=== PATIENT | female | born 1970 | race Two or more races ===

== ENCOUNTER → 2024-05-13 | Outpatient (CLI) | payer MEDICAID, SELFPAY ==
[2024-05-13 16:58] LABS: Basophils % (Auto) 1 % (0-2.5); Eosinophils % (Auto) 1 % (0-10); Hematocrit 36.8 % (36.0-46.0); Hemoglobin 12.3 g/dL (12.0-16.0); Immature Granulocytes % (Auto) 0 % (0-0); Immature Granulocytes Auto 0.02 Thou/mm3 (0.00-0.00); Lymphocytes # (Auto) 2.3 Thou/mm3 (1.0-4.8); Lymphocytes % (Auto) 36 % (10-50); Mean Corpuscular HGB Conc 33.4 g/dl (31.0-37.0); Mean Corpuscular Hemoglobin 34.3 pg (25.0-35.0); Mean Corpuscular Volume 103 fL (80-100); Monocytes # (Auto) 0.4 Thou/mm3 (0.0-0.8); Monocytes % (Auto) 6 % (0-12); Neutrophils # (Auto) 3.6 Thou/mm3 (1.8-7.7); Neutrophils % (Auto) 56 % (37-80); Nucleated Red Blood Cell % 0 /100 WBC (0); Platelet Count 248 Thou/mm3 (140-440); RDW Standard Deviation 52.1 fL (36.4-46.3); Red Blood Count 3.59 Miln/mm3 (4.00-5.20); White Blood Count 6.4 Thou/mm3 (3.6-11.0)
[2024-05-13 17:45] LABS: Alanine Aminotransferase 22 U/L (10-49); Albumin, Serum 4.7 gm/dL (3.5-5.0); Albumin/Globulin Ratio 2.2 (1.2-2.2); Alkaline Phosphatase 67 U/L (46-116); Anion Gap 6 (7-16); Aspartate Amino Transferase 15 U/L (0-34); BUN/Creatinine Ratio 15 Ratio (12-20); Bilirubin,Total 0.7 mg/dL (0.3-1.2); Blood Urea Nitrogen 16 mg/dL (9-23); Calcium 9.8 mg/dL (8.3-10.6); Calcium (Corrected) 9.8 mg/dL (8.5-10.1); Carbon Dioxide 29.6 mMol/L (20.0-31.0); Chloride 105 mMol/L (98-107); Creatinine (Component) 1.1 mg/dL (0.6-1.3); Globulin 2.1 gm/dL (2.3-3.5); Glucose 85 mg/dL (74-106); Osmolality,Calculated 281 (275-295); Sodium 141 mMol/L (136-145); Total Protein 6.8 gm/dL (5.7-8.2); eGFR > 60 See Note
== END | disposition home or self-care (01) ==
LOC: COPL 16:00
PROVIDERS: PCP Family Medicine; Referring Provider Internal Medicine Hematology & Oncology; Visit Provider Internal Medicine Hematology & Oncology
DX: C56.1 Malignant neoplasm of right ovary (principal)
CPT/HCPCS: 36415; 80053; 85025; 86304

== ENCOUNTER → 2024-06-17 | Outpatient (CLI) | payer MEDICAID, SELFPAY ==
[2024-06-17 10:39] LABS: Basophils % (Auto) 1 % (0-2.5); Eosinophils # (Auto) 0.1 Thou/mm3 (0.0-0.5); Eosinophils % (Auto) 1 % (0-10); Hematocrit 37.1 % (36.0-46.0); Hemoglobin 12.4 g/dL (12.0-16.0); Immature Granulocytes % (Auto) 1 % (0-0); Immature Granulocytes Auto 0.04 Thou/mm3 (0.00-0.00); Lymphocytes % (Auto) 36 % (10-50); Mean Corpuscular HGB Conc 33.4 g/dl (31.0-37.0); Mean Corpuscular Hemoglobin 34.3 pg (25.0-35.0); Mean Corpuscular Volume 103 fL (80-100); Monocytes # (Auto) 0.4 Thou/mm3 (0.0-0.8); Monocytes % (Auto) 8 % (0-12); Neutrophils % (Auto) 54 % (37-80); Nucleated Red Blood Cell % 0 /100 WBC (0); Platelet Count 240 Thou/mm3 (140-440); RDW Standard Deviation 50.4 fL (36.4-46.3); Red Blood Count 3.62 Miln/mm3 (4.00-5.20); White Blood Count 5.6 Thou/mm3 (3.6-11.0)
[2024-06-17 11:08] LABS: Alanine Aminotransferase 20 U/L (10-49); Albumin, Serum 4.5 gm/dL (3.5-5.0); Albumin/Globulin Ratio 2.6 (1.2-2.2); Alkaline Phosphatase 64 U/L (46-116); Anion Gap 7 (7-16); Aspartate Amino Transferase 14 U/L (0-34); BUN/Creatinine Ratio 19 Ratio (12-20); Bilirubin,Total 0.8 mg/dL (0.3-1.2); Blood Urea Nitrogen 19 mg/dL (9-23); Calcium 9.7 mg/dL (8.3-10.6); Calcium (Corrected) 9.7 mg/dL (8.5-10.1); Carbon Dioxide 29.3 mMol/L (20.0-31.0); Chloride 106 mMol/L (98-107); Globulin 1.7 gm/dL (2.3-3.5); Glucose 99 mg/dL (74-106); Osmolality,Calculated 285 (275-295); Potassium 4.6 mMol/L (3.4-5.1); Sodium 142 mMol/L (136-145); Total Protein 6.2 gm/dL (5.7-8.2); eGFR > 60 See Note
== END | disposition home or self-care (01) ==
LOC: COPL 09:53
PROVIDERS: PCP Family Medicine; Referring Provider Internal Medicine Hematology & Oncology; Visit Provider Internal Medicine Hematology & Oncology
DX: C56.1 Malignant neoplasm of right ovary (principal)
CPT/HCPCS: 36415; 80053; 85025; 86304

== ENCOUNTER → 2024-07-11 | Outpatient (CLI) | payer MEDICAID, SELFPAY ==
[2024-07-11 16:27] LABS: Basophils # (Auto) 0.1 Thou/mm3 (0.0-0.2); Basophils % (Auto) 1 % (0-2.5); Eosinophils # (Auto) 0.1 Thou/mm3 (0.0-0.5); Eosinophils % (Auto) 1 % (0-10); Hematocrit 36.5 % (36.0-46.0); Immature Granulocytes % (Auto) 1 % (0-0); Immature Granulocytes Auto 0.05 Thou/mm3 (0.00-0.00); Lymphocytes # (Auto) 2.7 Thou/mm3 (1.0-4.8); Lymphocytes % (Auto) 40 % (10-50); Mean Corpuscular HGB Conc 32.9 g/dl (31.0-37.0); Mean Corpuscular Hemoglobin 33.9 pg (25.0-35.0); Mean Corpuscular Volume 103 fL (80-100); Monocytes # (Auto) 0.4 Thou/mm3 (0.0-0.8); Monocytes % (Auto) 5 % (0-12); Neutrophils # (Auto) 3.6 Thou/mm3 (1.8-7.7); Neutrophils % (Auto) 53 % (37-80); Nucleated Red Blood Cell % 0 /100 WBC (0); Platelet Count 293 Thou/mm3 (140-440); RDW Standard Deviation 51.8 fL (36.4-46.3); Red Blood Count 3.54 Miln/mm3 (4.00-5.20); White Blood Count 6.8 Thou/mm3 (3.6-11.0)
[2024-07-11 16:51] LABS: Alanine Aminotransferase 20 U/L (10-49); Albumin, Serum 4.7 gm/dL (3.5-5.0); Albumin/Globulin Ratio 2.1 (1.2-2.2); Alkaline Phosphatase 64 U/L (46-116); Anion Gap 8 (7-16); Aspartate Amino Transferase < 8 U/L (0-34); BUN/Creatinine Ratio 19 Ratio (12-20); Bilirubin,Total 0.8 mg/dL (0.3-1.2); Blood Urea Nitrogen 19 mg/dL (9-23); Calcium 9.5 mg/dL (8.3-10.6); Calcium (Corrected) 9.5 mg/dL (8.5-10.1); Carbon Dioxide 27.8 mMol/L (20.0-31.0); Chloride 104 mMol/L (98-107); Globulin 2.2 gm/dL (2.3-3.5); Glucose 153 mg/dL (74-106); Osmolality,Calculated 284 (275-295); Potassium 3.8 mMol/L (3.4-5.1); Sodium 140 mMol/L (136-145); Total Protein 6.9 gm/dL (5.7-8.2); eGFR > 60 See Note
== END | disposition home or self-care (01) ==
LOC: COPL 14:00
PROVIDERS: PCP Physician Assistant; Referring Provider Internal Medicine Hematology & Oncology; Visit Provider Internal Medicine Hematology & Oncology
DX: C56.1 Malignant neoplasm of right ovary (principal)
CPT/HCPCS: 36415; 80053; 85025; 86304

== ENCOUNTER 2024-07-19 15:02 | Emergency (ER) | payer MEDICAID, SELFPAY ==
[2024-07-19 15:02] VITALS: BMI 25.0
[2024-07-19 15:25] VITALS: BP 116/64; PULSE 89; RESP 22; TEMP 36.8; O2SAT 96
--- NOTE | 2024-07-19 15:26 | EDNOTE_ITS ---
ED Abdominal Pain RME/HPI General Chief Complaint: Abdominal Pain Stated complaint: MY BELLY OPENED UP AGAIN Time seen by provider: 07/19/24 15:14 Arrival date/time: 07/19/24 15:02 RME / HPI RME / HPI narrative: This section includes all my notes and documentations, including HPI, PE, and ED course.? Kendall Espinoza MD HPI: 54 year old female with history of ovarian CA with mets, undergoing chemotherapy, s/p hysterectomy, s/p partial colon resection presents to the ED for evaluation of abdominal pain beginning 6 days ago and progressively worsening. Describes pain as aching and sensation of my stomach opened up again . Reportedly has been evaluated here before for similar pain and had a hernia that was reduced. States she feels her hernia is bulging out again. Accompanied by nausea without vomiting. Denies fevers, chills, sweats, diarrhea, constipation, or urinary symptoms. No other complaints. ROS: All negative except as documented in HPI. Physical Exam: General:? Alert and oriented.? No acute distress when remaining still.?? Eyes:? Conjunctivae and lids clear.? ENT:? No nasal congestion.? Neck:? Supple.? Heart:? RRR.? Lungs:? No respiratory distress.? Good air movement.? No rhonchi, wheezing, rale s.?? Abdomen: Severe tenderness diffusely, difficult to localize. Equivocal distention and guarding and rebound. Decreased bowel sounds. Skin:? Warm and dry.?? Neuro:? Alert and oriented X 3.?? I ordered IV fluid and Zofran and Toradol and Dilaudid and diagnostic tests. At 6 PM on 07/19/2024, the care of the patient was transferred to Dr Andrews. Kendall Espinoza MD Related Data Home Medications ?Medication ?Instructions ?Recorded ?Confirmed omeprazole 20 mg capsule,delayed 20 mg PO QDAY ##0 01/16/17 10/31/22 release ondansetron HCl 4 mg tablet 4 mg PO Q6HR PRN Nausea 10/31/22 10/31/22 oxycodone-acetaminophen 5 mg-325 1 tab PO PRN PRN Pain 10/31/22 10/31/22 mg tablet Previous Rx's ?Medication ?Instructions ?Recorded sumatriptan succinate 25 mg tablet 25 mg PO Q2H PRN migraine headache 11/03/22 1 month #14 tabs acetaminophen 500 mg tablet 500 mg PO Q6H PRN pain #30 tabs 06/10/23 (Tylenol Extra Strength) ciprofloxacin HCl 500 mg tablet 500 mg PO BID #14 tabs 06/10/23 (Cipro) Allergies Allergy/AdvReac Type Severity Reaction Status Date / Time Penicillins Allergy Severe Swelling Verified 07/19/24 15:06 of Lip/Tongue/Throat piroxicam Allergy Severe SWELLING, Verified 07/19/24 15:06 RASH UNKNOWN ALLERGY PIILL Allergy Unknown Uncoded 07/19/24 15:06 Review of Systems Review of Systems Systems Reviewed: All systems reviewed, normal except as documented Past Medical History Past Medical History CARDIAC: Positive Cardiac Arrhythmia and Hypotension GASTROINTESTINAL: Positive Gastrointestinal Disorders, Gall Bladder Disease, Colitis and Gastroesophageal Reflux Disease REPRODUCTIVE: Positive Previous Pregnancies PSYCHO/SOCIAL: Positive Psychiatric Problems and Depression OTHER HISTORY: Positive Hospitalization, Chemotherapy, Cancer and Ovarian Cancer Family History FAMILY HISTORY: Positive Family Cardiac Disorders Surgical History SURGICAL: Positive Nephrectomy and Hysterectomy Social History SMOKING STATUS: Never smoker SUBSTANCE USE: does not use ED Exam Narrative Physical exam: As noted in HPI Course Quality Measures none Orders Category Date Time Status CT Screening NOW Care 07/19/24 15:37 Active Saline [Insert IV] NOW Care 07/19/24 15:37 Active Straight [In and Out Catheter] X1 Care 07/19/24 15:[address] abdomen pelvis w con Stat Exams 07/19/24 15:37 Ordered Amylase Stat Lab 07/19/24 15:55 Completed CBC Stat Lab 07/19/24 15:55 Completed CMP [Comprehensive Metabolic Panel] Stat Lab 07/19/24 15:55 Completed Drug Screen,Urine Stat Lab 07/19/24 15:48 Completed Lipase Stat Lab 07/19/24 15:55 Completed Magnesium Stat Lab 07/19/24 15:55 Completed UA, C/S IF [Urinalysis, C/S if Indicated] Stat Lab 07/19/24 15:48 Completed HYDROmorphone INJ [Dilaudid Inj] Med 07/19/24 15:36 Discontinued 1 mg IVP X1 ONE Ketorolac Inj [Toradol Inj] Med 07/19/24 15:36 Discontinued 30 mg IVP X1 ONE Ondansetron Inj [Zofran Inj] Med 07/19/24 15:36 Discontinued 4 mg IV X1 ONE Sodium Chloride 0.9% 1000 ml [Ns] 1,000 ml Med 07/19/24 15:36 Discontinued IV 999 mls/hr Vital Signs Vital signs: Vital Signs Temperature 98.2 F 07/19/24 15:25 Pulse Rate 89 07/19/24 15:25 Respiratory Rate 22 H 07/19/24 15:25 Blood Pressure 116/64 07/19/24 15:25 Pulse Oximetry (%) 96 07/19/24 15:25 Oxygen Delivery Method Room Air 07/19/24 15:25 Pulse ox is 96% on room air which is adequate. Abdominal Pain MDM MDM Narrative MDM Narrative:: Chary Garcia am scribing for and in the presence of Dr. Espinoza. Patient data External records reviewed:: [facility] previous records (I reviewed ED visit on 04/23/2024 ) Clinical information provided by:: patient Social determinants that could affect healthcare access:: none Patient has the following chronic illnesses:: ovarian CA with mets, undergoing chemotherapy, s/p hysterectomy, s/p partial co manoj resection, umbilical hernia How is presenting disease/condition affected by chronic disease/condition?: exacerbated by Evaluation data The following diagnostics were reviewed and interpreted by me:: lab results and radiology exam(s) Lab and/or radiology exams considered but not ordered:: None Interpretation Summary: Diagnostic test results pending Medications / Prescriptions Medications or Prescriptions considered but not ordered:: None Medication administrations:: Medication Administration History Discontinued Medications Hydromorphone HCl (Hydromorphone Inj 2 Mg/Ml Vial) 1 mg IVP X1 ONE Stop: 07/19/24 15:37 Sodium Chloride (Ns) 1,000 mls @ 999 mls/hr IV .Q1H1M ONE Stop: 07/19/24 16:36 Ketorolac Tromethamine (Ketorolac Inj 30 Mg/Ml Vial) 30 mg IVP X1 ONE Stop: 07/19/24 15:37 Ondansetron HCl (Ondansetron Inj 2 Mg/Ml Inj 2 Ml) 4 mg IV X1 ONE; Protocol Stop: 07/19/24 15:37 Patient given IV fluids, dilaudid, toradol, zofran Consultations Consultation(s) initiated? (list below): No Diagnosis Differential diagnosis abdominal pain: acute appendicitis, calculus of kidney, constipation, diverticulitis, endometriosis, gastroenteritis, pancreatitis and small bowel obstruction Most likely diagnosis given after review of the tests above:: Diagnostic test results pending Admission Indicated Admission indicated?: not indicated Explain why admission is indicated or not indicated:: Diagnostic test results pending Admission Request Was there a request for admission?: No Disposition Plan Disposition Plan: other (specify) (Care of the patient was transferred to Dr Andrews) Discharge Plan Prescriptions/Referrals Prescriptions/Med Rec: No Action omeprazole 20 MG capsule,delayed release(DR/EC) 20 mg PO QDAY Qty: 0 ondansetron HCl 4 mg Tablet 4 mg PO Q6HR PRN (Reason: Nausea) oxycodone-acetaminophen 5-325 mg Tablet 1 tab PO PRN PRN (Reason: Pain) sumatriptan succinate 25 mg tablet 25 mg PO Q2H PRN (Reason: migraine headache) 30 Days Qty: 14 1RF Rx Instructions: do not exceed 8 doses per 24 hrs ciprofloxacin HCl [Cipro] 500 mg tablet 500 mg PO BID Qty: 14 0RF acetaminophen [Tylenol Extra Strength] 500 mg tablet 500 mg PO Q6H PRN (Reason: pain) Qty: 30 0RF Problem List Clinical Impression: Abdominal pain Patient/Caregiver Discharge Instructions Print Language: [place] Verdean
[2024-07-19 16:19] LABS: Collection Type, Urine Clean Catch
[2024-07-19 16:21] LABS: Basophils % (Auto) 1 % (0-2.5); Eosinophils # (Auto) 0.1 Thou/mm3 (0.0-0.5); Eosinophils % (Auto) 1 % (0-10); Hemoglobin 12.5 g/dL (12.0-16.0); Immature Granulocytes % (Auto) 1 % (0-0); Immature Granulocytes Auto 0.04 Thou/mm3 (0.00-0.00); Lymphocytes # (Auto) 2.2 Thou/mm3 (1.0-4.8); Lymphocytes % (Auto) 32 % (10-50); Mean Corpuscular HGB Conc 33.8 g/dl (31.0-37.0); Mean Corpuscular Hemoglobin 34.3 pg (25.0-35.0); Mean Corpuscular Volume 102 fL (80-100); Monocytes # (Auto) 0.5 Thou/mm3 (0.0-0.8); Monocytes % (Auto) 7 % (0-12); Neutrophils % (Auto) 58 % (37-80); Nucleated Red Blood Cell % 0 /100 WBC (0); Platelet Count 246 Thou/mm3 (140-440); Red Blood Count 3.64 Miln/mm3 (4.00-5.20); White Blood Count 6.9 Thou/mm3 (3.6-11.0)
[2024-07-19 16:30] LABS: Amphetamine/Methamp Scrn,U Negative (Negative); Barbiturate Screen,Urine Negative (Negative); Benzodiazepines Screen,Urine Negative (Negative); Benzoylecgonine Screen, Ur Negative (Negative); Fentanyl Screen,Urine Negative (Negative); Opiate Screen,Urine Negative (Negative); THC Screen,Urine Negative (Negative)
[2024-07-19 16:35] LABS: Alanine Aminotransferase 25 U/L (10-49); Albumin, Serum 4.8 gm/dL (3.5-5.0); Albumin/Globulin Ratio 2.1 (1.2-2.2); Alkaline Phosphatase 64 U/L (46-116); Amylase 85 U/L (30-118); Anion Gap 6 (7-16); Aspartate Amino Transferase < 8 U/L (0-34); BUN/Creatinine Ratio 16 Ratio (12-20); Blood Urea Nitrogen 14 mg/dL (9-23); Calcium 9.6 mg/dL (8.3-10.6); Calcium (Corrected) 9.6 mg/dL (8.5-10.1); Carbon Dioxide 30.9 mMol/L (20.0-31.0); Chloride 102 mMol/L (98-107); Creatinine (Component) 0.9 mg/dL (0.6-1.3); Estimated Creatinine Clearance 64.3 mL/min (>60); Globulin 2.3 gm/dL (2.3-3.5); Glucose 104 mg/dL (74-106); Lipase 34 U/L (12-53); Magnesium 2.1 mg/dL (1.6-2.6); Osmolality,Calculated 278 (275-295); Sodium 139 mMol/L (136-145); Total Protein 7.1 gm/dL (5.7-8.2); eGFR > 60 See Note
[2024-07-19 16:35] LABS: Bilirubin,Urine Negative (Negative); Blood,Urine Negative (Negative); Clarity,Urine Clear (Clear/Hazy); Color,Urine Yellow (Lt Yel-Yel); Culture Indicated,Urine Not Indicated; Glucose, Urine Negative (Negative); Ketones,Urine Negative (Negative); Leukocyte Esterase,Urine Negative (Negative); Nitrite,Urine Negative (Negative); PH,Urine 7.5 (5.0-7.0); Protein,Urine Trace (Neg - Trace); RBC,Urine 3 /hpf (0-3); Specific Gravity,Urine 1.027 (1.001-1.035); Squamous Epithelial Cell,Urine 1 /hpf (0-5); WBC,Urine 3 /hpf (0-5)
[2024-07-19 17:18] VITALS: BP 116/60; PULSE 64; RESP 18; TEMP 36.6; O2SAT 99
--- NOTE | 2024-07-19 17:36 | XR_ITS ---
Examination: CT abdomen with intravenous contrast CT pelvis with intravenous contrast 2-D coronal reconstructions 2-D sagittal reconstructions Date and time of exam:July 19, 2024 1836 hours Comparison April 23, 2024 INDICATIONS: Diagnosis ovarian cancer with history incarcerated bowel in an umbilical hernia defect on CT abdomen pelvis April 23, 2024, current generalized abdominal pain and nausea beginning 6 days ago. CTDI: vol (mGy) 8.34 DLP: (mGycm) 475 Technique: Multiple axial sections of the abdomen and pelvis have been obtained. 64 slice high-resolution scanner used. 3 mm axial sections have been obtained, post intravenous injection 60 cc Isovue-370 2-D sagittal, coronal reconstructions obtained. Low dose protocols were performed. One or more of the following dose reduction techniques were used; automated exposure control, adjustment of the mA and/or KV according to patient size, use of iterative reconstruction technique. Findings: Multiple metastatic nodules in the left lower lobe, the largest 15 mm, please see the PET/CT scan report March 05, 2024 1 mm liver calcification No solid liver lesions or intrahepatic biliary tract dilatation Contracted gallbladder Spleen not enlarged No pancreatic or adrenal mass Interval mild left hydronephrosis mild right hydronephrosis, no ureteral calculi Aorta is not enlarged No periaortic or pericaval lymphadenopathy No pericecal inflammatory change Small bowel high-grade obstruction secondary to incarcerated small bowel in a 36 mm umbilical hernia defect No free air No pelvic mass Contracted urinary bladder Moderate osteopenia 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
[2024-07-19] MEDS: SODIUM CHLORIDE 0.9% 1000 ML 1,000 ML 999 ML IV (17:45)
--- NOTE | 2024-07-19 18:01 | EDNOTE_ITS ---
Emergency Room Addendum <Noemi Barreto - Last Filed: 07/19/24 20:43> Addendum Narrative: 1800: Care assumed from Dr. Espinoza, the previous shift emergency physician. Past medical, surgical, social and family history reviewed. Vitals and home medications reviewed. Results and treatment plan discussed. I will assume the care of the patient at this time and will follow the patient, pending CT abdomen pelvis. Please refer to the emergency department record for history and examination from initial visit. 1923: Morphine and Ativan ordered. Will attempt to reduce the patient's hernia after the patient receives the medications. 2040: Patient denies any nausea, vomiting or constipation. Patient has been having bowel movements on a regular basis. Patient is not displaying signs of a SBO at this time. On exam, patient has a soft hernia at the 8 o'clock region of the umbilicus that was easily reduced. Patient is stable to be discharged home. RADIOLOGY RESULTS: [facility] Report Signed Patient: HALEIGH PICHARDO Record#: [id number] Birthdate: 1970 Age/Sex: 54 / F Location: [facility] Attending Dr: Ordering Physician: Kendall Espinoza MD Date of Service: 07/19/24 Procedure(s): CT abdomen pelvis w con Accession Number(s): [id number] cc: Kendall Espinoza MD; Cosme Maddox PA-C; Cain Naidu MD~ Examination: CT abdomen with intravenous contrast CT pelvis with intravenous contrast 2-D coronal reconstructions 2-D sagittal reconstructions Date and time of exam:July 19, 2024 1836 hours Comparison April 23, 2024 INDICATIONS: Diagnosis ovarian cancer with history incarcerated bowel in an umbilical hernia defect on CT abdomen pelvis April 23, 2024, current generalized abdominal pain and nausea beginning 6 days ago. CTDI: vol (mGy) 8.34 DLP: (mGycm) 475 Technique: Multiple axial sections of the abdomen and pelvis have been obtained. 64 slice high-resolution scanner used. 3 mm axial sections have been obtained, post intravenous injection 60 cc Isovue-370 2-D sagittal, coronal reconstructions obtained. Low dose protocols were performed. One or more of the following dose reduction techniques were used; automated exposure control, adjustment of the mA and/or KV according to patient size, use of iterative reconstruction technique. Findings: Multiple metastatic nodules in the left lower lobe, the largest 15 mm, please see the PET/CT scan report March 05, 2024 1 mm liver calcification No solid liver lesions or intrahepatic biliary tract dilatation Contracted gallbladder Spleen not enlarged No pancreatic or adrenal mass Interval mild left hydronephrosis mild right hydronephrosis, no ureteral calculi Aorta is not enlarged No periaortic or pericaval lymphadenopathy No pericecal inflammatory change Small bowel high-grade obstruction secondary to incarcerated small bowel in a 36 mm umbilical hernia defect No free air No pelvic mass Contracted urinary bladder Moderate osteopenia 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 Dictated By: Cain Naidu MD Signed By: <Electronically signed by Cain Naidu MD in [place]> 07/19/241908 <Moises Andrews MD - Last Filed: 07/19/24 23:35> Addendum Narrative: 1800: Care assumed from Dr. Espinoza, the previous shift emergency physician. Past medical, surgical, social and family history reviewed. Vitals and home medications reviewed. Results and treatment plan discussed. I will assume the care of the patient at this time and will follow the patient, pending CT abdomen pelvis. Please refer to the emergency department record for history and examination from initial visit. On my encounter with the patient she has a known history of an umbilical hernia, she recalls reduction of the hernia about 4 months ago by me. She did follow-up with her oncologist and she has referral to general surgery in [place] for the first time on 30 July this year. She has noted pain for the last week of which has accelerated for the last 2 days. She does not endorse a significant mass but the pain is around her umbilicus which is where her hernia has been before. On exam she has very mild nonfirm fullness about 7-8:00 from the umbilicus, suggestive with possible hernia. Is not overtly incarcerated or strangulated appearing. 1924: Morphine and Ativan ordered. Will attempt to reduce the patient's hernia after the patient receives the medications. 2040: Patient denies any nausea, vomiting or constipation. Patient has been having bowel movements on a regular basis. Patient is not displaying signs of a SBO at this time. On exam, patient has a soft hernia at the 8 o'clock region of the umbilicus that was easily reduced. Patient is stable to be discharged home. RADIOLOGY RESULTS: [facility] Report Signed Patient: HALEIGH PICHARDO. Record#: [id number] Birthdate: 1970 Age/Sex: 54 / F Location: [facility] Attending Dr: Ordering Physician: Kendall Espinoza MD Date of Service: 07/19/24 Procedure(s): CT abdomen pelvis w con Accession Number(s): [id number] cc: Kendall Espinoza MD; Cosme Maddox PA-C; Cain Naidu MD~ Examination: CT abdomen with intravenous contrast CT pelvis with intravenous contrast 2-D coronal reconstructions 2-D sagittal reconstructions Date and time of exam:July 19, 2024 1836 hours Comparison April 23, 2024 INDICATIONS: Diagnosis ovarian cancer with history incarcerated bowel in an umbilical hernia defect on CT abdomen pelvis April 23, 2024, current generalized abdominal pain and nausea beginning 6 days ago. CTDI: vol (mGy) 8.34 DLP: (mGycm) 475 Technique: Multiple axial sections of the abdomen and pelvis have been obtained. 64 slice high-resolution scanner used. 3 mm axial sections have been obtained, post intravenous injection 60 cc Isovue-370 2-D sagittal, coronal reconstructions obtained. Low dose protocols were performed. One or more of the following dose reduction techniques were used; automated exposure control, adjustment of the mA and/or KV according to patient size, use of iterative reconstruction technique. Findings: Multiple metastatic nodules in the left lower lobe, the largest 15 mm, please see the PET/CT scan report March 05, 2024 1 mm liver calcification No solid liver lesions or intrahepatic biliary tract dilatation Contracted gallbladder Spleen not enlarged No pancreatic or adrenal mass Interval mild left hydronephrosis mild right hydronephrosis, no ureteral calculi Aorta is not enlarged No periaortic or pericaval lymphadenopathy No pericecal inflammatory change Small bowel high-grade obstruction secondary to incarcerated small bowel in a 36 mm umbilical hernia defect No free air No pelvic mass Contracted urinary bladder Moderate osteopenia 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
[2024-07-19 19:34] VITALS: BP 124/55; PULSE 61; RESP 16; TEMP 36.7; O2SAT 97
[2024-07-19] MEDS: MORPHINE SULF INJ 10 MG/ML VIAL 4 MG IVP (19:47)
[2024-07-19] MEDS: LORazepam 2 MG/ML VIAL 1 MG IVP (19:47)
[2024-07-19 21:00] VITALS: BP 108/55; PULSE 67; RESP 18; O2SAT 98
== END 2024-07-19 21:03 | disposition home or self-care (01) ==
PROVIDERS: Emergency Medicine; Emergency Provider Emergency Medicine; PCP Physician Assistant
DX: K42.0 Umbilical hernia with obstruction, without gangrene (principal); C78.02 Secondary malignant neoplasm of left lung; N13.30 Unspecified hydronephrosis; C79.51 Secondary malignant neoplasm of bone
CPT/HCPCS: 36415; 74177; 80053; 80307; 81001; 82150; 83690; 83735; 85025; 96361; 96374; 96375; 99285; A4649; J2060; J2270; J7030; Q9967

== ENCOUNTER → 2024-08-14 | Outpatient (CLI) | payer MEDICAID, SELFPAY ==
[2024-08-14 13:42] LABS: Basophils % (Auto) 1 % (0-2.5); Eosinophils # (Auto) 0.1 Thou/mm3 (0.0-0.5); Eosinophils % (Auto) 1 % (0-10); Hematocrit 38.3 % (36.0-46.0); Hemoglobin 12.9 g/dL (12.0-16.0); Immature Granulocytes % (Auto) 1 % (0-0); Immature Granulocytes Auto 0.04 Thou/mm3 (0.00-0.00); Lymphocytes # (Auto) 2.1 Thou/mm3 (1.0-4.8); Lymphocytes % (Auto) 29 % (10-50); Mean Corpuscular HGB Conc 33.7 g/dl (31.0-37.0); Mean Corpuscular Hemoglobin 34.7 pg (25.0-35.0); Mean Corpuscular Volume 103 fL (80-100); Monocytes # (Auto) 0.5 Thou/mm3 (0.0-0.8); Monocytes % (Auto) 7 % (0-12); Neutrophils # (Auto) 4.4 Thou/mm3 (1.8-7.7); Neutrophils % (Auto) 62 % (37-80); Nucleated Red Blood Cell % 0 /100 WBC (0); Platelet Count 254 Thou/mm3 (140-440); Red Blood Count 3.72 Miln/mm3 (4.00-5.20); White Blood Count 7.1 Thou/mm3 (3.6-11.0)
[2024-08-14 14:05] LABS: Alanine Aminotransferase 24 U/L (10-49); Albumin, Serum 4.6 gm/dL (3.5-5.0); Albumin/Globulin Ratio 2.1 (1.2-2.2); Alkaline Phosphatase 69 U/L (46-116); Anion Gap 8 (7-16); Aspartate Amino Transferase 15 U/L (0-34); BUN/Creatinine Ratio 21 Ratio (12-20); Bilirubin,Total 0.7 mg/dL (0.3-1.2); Blood Urea Nitrogen 19 mg/dL (9-23); Calcium 9.6 mg/dL (8.3-10.6); Calcium (Corrected) 9.6 mg/dL (8.5-10.1); Carbon Dioxide 30.2 mMol/L (20.0-31.0); Chloride 103 mMol/L (98-107); Creatinine (Component) 0.9 mg/dL (0.6-1.3); Globulin 2.2 gm/dL (2.3-3.5); Glucose 105 mg/dL (74-106); Osmolality,Calculated 283 (275-295); Potassium 4.4 mMol/L (3.4-5.1); Sodium 141 mMol/L (136-145); Total Protein 6.8 gm/dL (5.7-8.2); eGFR > 60 See Note
== END | disposition home or self-care (01) ==
LOC: COPL 12:02
PROVIDERS: PCP Physician Assistant; Referring Provider Internal Medicine Hematology & Oncology; Visit Provider Internal Medicine Hematology & Oncology
DX: C56.1 Malignant neoplasm of right ovary (principal)
CPT/HCPCS: 36415; 80053; 85025; 86304

== ENCOUNTER 2024-09-05 06:25 | Day surgery (SDC) | payer MEDICAID, SELFPAY ==
--- NOTE | 2024-09-04 07:00 | EKG_ITS ---
[facility] (Formerly [facility]) Test Date: 2024-09-04 Pat Name: HALEIGH PICHARDO Department: Room: - Gender: Female Contact Center Specialist: RT STUDENT : 1970 Requested By: Paola Carballo Order Number: [id number] Reading MD: Paola Carballo Measurements Intervals [place] Rate: 56 P: 67 GA: 163 QRS: 59 QRSD: 81 T: 73 QT: 396 QTc: 383 Interpretive Statements SINUS BRADYCARDIA WARNING: DATA QUALITY MAY AFFECT INTERPRETATION Compared to ECG 10/31/2022 11:53:21 Sinus rhythm no longer present /store/S0/[id number]/[id number].pdf
[2024-09-04 12:44] VITALS: BMI 28.0
[2024-09-04 13:36] LABS: Basophils % (Auto) 1 % (0-2.5); Eosinophils # (Auto) 0.1 Thou/mm3 (0.0-0.5); Eosinophils % (Auto) 1 % (0-10); Hematocrit 39.6 % (36.0-46.0); Hemoglobin 13.3 g/dL (12.0-16.0); Immature Granulocytes % (Auto) 1 % (0-0); Immature Granulocytes Auto 0.03 Thou/mm3 (0.00-0.00); Lymphocytes # (Auto) 2.3 Thou/mm3 (1.0-4.8); Lymphocytes % (Auto) 35 % (10-50); Mean Corpuscular HGB Conc 33.6 g/dl (31.0-37.0); Mean Corpuscular Hemoglobin 34.1 pg (25.0-35.0); Mean Corpuscular Volume 102 fL (80-100); Monocytes # (Auto) 0.5 Thou/mm3 (0.0-0.8); Monocytes % (Auto) 8 % (0-12); Neutrophils # (Auto) 3.6 Thou/mm3 (1.8-7.7); Neutrophils % (Auto) 55 % (37-80); Nucleated Red Blood Cell % 0 /100 WBC (0); Platelet Count 270 Thou/mm3 (140-440); RDW Standard Deviation 49.7 fL (36.4-46.3); White Blood Count 6.5 Thou/mm3 (3.6-11.0)
[2024-09-04 13:49] LABS: Alanine Aminotransferase 26 U/L (10-49); Albumin, Serum 4.9 gm/dL (3.5-5.0); Alkaline Phosphatase 65 U/L (46-116); Anion Gap 8 (7-16); Aspartate Amino Transferase 20 U/L (0-34); BUN/Creatinine Ratio 18 Ratio (12-20); Bilirubin,Total 1.1 mg/dL (0.3-1.2); Blood Urea Nitrogen 18 mg/dL (9-23); Calcium 10.3 mg/dL (8.3-10.6); Calcium (Corrected) 10.3 mg/dL (8.5-10.1); Carbon Dioxide 31.1 mMol/L (20.0-31.0); Chloride 104 mMol/L (98-107); Globulin 2.5 gm/dL (2.3-3.5); Glucose 102 mg/dL (74-106); Osmolality,Calculated 286 (275-295); Potassium 4.5 mMol/L (3.4-5.1); Sodium 143 mMol/L (136-145); Total Protein 7.4 gm/dL (5.7-8.2); eGFR > 60 See Note
--- NOTE | 2024-09-04 14:48 | SUR.PREOP ---
Pt cardiac records indicate stress test negative for ischemia. Pt did not go for appt for results.
--- NOTE | 2024-09-04 14:54 | SUR.PREOP ---
Cardiac records reviewed with Dr Haas.
[2024-09-05] VITALS (9 sets, daily range): BP systolic 107–154; BP diastolic 65–75; PULSE 62–93; RESP 12–18; TEMP 36.3–36.6; O2SAT 99–100; BMI 28.0
[2024-09-05] MEDS: RINGERS LACTATED 1000 ML 1,000 ML 20 ML IV (07:22)
--- NOTE | 2024-09-05 09:24 | ESOP_ITS ---
Date of Procedure 09/05/24 Pre Op Diagnosis Incisional hernia Post Op Diagnosis Incisional hernia Procedure Laparoscopy with primary repair periumbilical incisional hernia Findings Approximately 4 cm periumbilical incisional hernia. Significant amount of abdominal adhesions Procedure Description Patient brought into the operating room in supine position. After administration of general endotracheal anesthesia, patient's abdomen prepped and draped in standard surgical manner. Patient was noted to have a large laparotomy scar from mid epigastrium to suprapubic region. A 5 mm incision was made in the right upper quadrant and Veress needle was inserted. Pneumoperitoneum was obtained up to 15 mmHg. The Veress needle was removed and 5 mm trocar inserted. Laparoscopic camera was inserted. The abdomen was inspected. Patient was noted to have significant amount of intra-abdominal adhesions with multiple loops of small bowel adherent into anterior abdominal wall. I felt that lysis of adhesions would likely cause small bowel injuries, so I elected to repair the hernia defect primarily. The pneumoperitoneum was evacuated and trocar removed. After administration of local anesthesia an approximately 4 cm semicircular incision was made over her previous scar to the right and around the umbilicus and dissection was deepened into soft tissue. The hernia sac was circumferentially dissected off surrounding tissue. The sac was opened patient was noted to have significant amount of adhesions of small bowel into the hernia sac. I performed enough lysis of adhesions to free small bowel from hernia sac and abdominal fascia to close the fascia primarily. The fascia was then primarily closed with interrupted sutures using 0 Ethibond. Soft tissue reapproximated with interrupted sutures using 2-0 Vicryl. Subcutaneous tissue closed with interrupted sutures using 2-0 Vicryl and incisions were closed with 4-0 Monocryl in subcuticular fashion. Dermabond and pressure dressings applied. Patient tolerated the procedure well. She was extubated, breathing spontaneously and without difficulty and was transferred to postanesthesia care in stable condition. Instruments, needles and sponge counts were reported to be correct x 2. Anesthesia GETA and local Pathology / specimen Other (Hernia sac) Estimated Blood Loss 5 Condition Stable Disposition PACU Surgeon Paola Carballo MD Surgical Staff Operation Date: 09/05/24 08:30 Case Staff Anesthesiologist: Tereso Haas RNboiler coverer helper: Polina Staples
--- NOTE | 2024-09-05 09:25 | SUR.PHASEI ---
pt received from OR in recovery bay 5. pt obtunded, breathing unlabored on oxymask 8l, oral airway in place. v/s stable. pt dressing to abd x3 cdi. report received from Walter BANKS and Dr. Haas.
[2024-09-05] MEDS: ONDANSETRON INJ 2 MG/ML INJ 2 ML 4 MG IV (09:54)
--- NOTE | 2024-09-05 09:58 | SUR.PHASEII ---
pt able to tolerate oral fluids without difficulty swallowing or nausea/vomiting.
--- NOTE | 2024-09-05 10:50 | SUR.PHASEII ---
pt awake and alert, breathing unlabored on room air. v/s stable. pt dressing to abd cdi. abd binder in place. pt able to ambulate to wheelchair with steady gait. d/c instructions given with Yazmin in room using manifold operator Rena [id number], all questions answered. pt d/c via wheelchair with all belongings.
== END 2024-09-05 10:50 | disposition home or self-care (01) ==
PROVIDERS: PCP Physician Assistant; Referring Provider Surgery; Visit Provider Surgery
PROC: 0WQF4ZZ Repair Abdominal Wall, Percutaneous Endoscopic Approach (ICD-10-PCS; CPT 49593; principal; 2024-09-05 08:30)
DX: K43.2 Incisional hernia without obstruction or gangrene (principal); K66.0 Peritoneal adhesions (postprocedural) (postinfection); Z01.810 Encounter for preprocedural cardiovascular examination
CPT/HCPCS: 49593; 36415; 80048; 80053; 85025; 93005; A4217; A4649; J0131; J0690; J1100; J2371; J2405; J2704; J2765; J3010; J3490; J7120

== ENCOUNTER → 2024-09-17 | Outpatient (CLI) | payer MEDICAID, SELFPAY ==
[2024-09-17 16:40] LABS: Basophils # (Auto) 0.1 Thou/mm3 (0.0-0.2); Basophils % (Auto) 1 % (0-2.5); Eosinophils # (Auto) 0.1 Thou/mm3 (0.0-0.5); Eosinophils % (Auto) 1 % (0-10); Hematocrit 35.2 % (36.0-46.0); Immature Granulocytes % (Auto) 1 % (0-0); Immature Granulocytes Auto 0.05 Thou/mm3 (0.00-0.00); Lymphocytes # (Auto) 2.7 Thou/mm3 (1.0-4.8); Lymphocytes % (Auto) 40 % (10-50); Mean Corpuscular HGB Conc 34.1 g/dl (31.0-37.0); Mean Corpuscular Hemoglobin 34.5 pg (25.0-35.0); Mean Corpuscular Volume 101 fL (80-100); Monocytes # (Auto) 0.4 Thou/mm3 (0.0-0.8); Monocytes % (Auto) 6 % (0-12); Neutrophils # (Auto) 3.5 Thou/mm3 (1.8-7.7); Neutrophils % (Auto) 52 % (37-80); Nucleated Red Blood Cell % 0 /100 WBC (0); Platelet Count 267 Thou/mm3 (140-440); RDW Standard Deviation 49.8 fL (36.4-46.3); Red Blood Count 3.48 Miln/mm3 (4.00-5.20); White Blood Count 6.8 Thou/mm3 (3.6-11.0)
[2024-09-17 16:53] LABS: Alanine Aminotransferase 17 U/L (10-49); Albumin, Serum 4.3 gm/dL (3.5-5.0); Albumin/Globulin Ratio 2.2 (1.2-2.2); Alkaline Phosphatase 62 U/L (46-116); Anion Gap 7 (7-16); Aspartate Amino Transferase 15 U/L (0-34); BUN/Creatinine Ratio 18 Ratio (12-20); Bilirubin,Total 0.5 mg/dL (0.3-1.2); Blood Urea Nitrogen 18 mg/dL (9-23); Calcium 9.2 mg/dL (8.3-10.6); Calcium (Corrected) 9.2 mg/dL (8.5-10.1); Carbon Dioxide 29.3 mMol/L (20.0-31.0); Chloride 107 mMol/L (98-107); Glucose 117 mg/dL (74-106); Osmolality,Calculated 287 (275-295); Sodium 143 mMol/L (136-145); Total Protein 6.3 gm/dL (5.7-8.2); eGFR > 60 See Note
== END | disposition home or self-care (01) ==
LOC: COPL 14:23
PROVIDERS: PCP Physician Assistant; Referring Provider Internal Medicine Hematology & Oncology; Visit Provider Internal Medicine Hematology & Oncology
DX: C56.1 Malignant neoplasm of right ovary (principal)
CPT/HCPCS: 36415; 80053; 85025; 86304

== ENCOUNTER → 2024-10-15 | Outpatient (CLI) | payer MEDICAID, SELFPAY ==
[2024-10-15 15:51] LABS: Basophils % (Auto) 1 % (0-2.5); Eosinophils # (Auto) 0.1 Thou/mm3 (0.0-0.5); Eosinophils % (Auto) 1 % (0-10); Hematocrit 38.7 % (36.0-46.0); Hemoglobin 12.9 g/dL (12.0-16.0); Immature Granulocytes % (Auto) 0 % (0-0); Immature Granulocytes Auto 0.02 Thou/mm3 (0.00-0.00); Lymphocytes # (Auto) 2.6 Thou/mm3 (1.0-4.8); Lymphocytes % (Auto) 40 % (10-50); Mean Corpuscular HGB Conc 33.3 g/dl (31.0-37.0); Mean Corpuscular Hemoglobin 33.6 pg (25.0-35.0); Mean Corpuscular Volume 101 fL (80-100); Monocytes # (Auto) 0.5 Thou/mm3 (0.0-0.8); Monocytes % (Auto) 8 % (0-12); Neutrophils # (Auto) 3.3 Thou/mm3 (1.8-7.7); Neutrophils % (Auto) 51 % (37-80); Nucleated Red Blood Cell % 0 /100 WBC (0); Platelet Count 264 Thou/mm3 (140-440); RDW Standard Deviation 49.5 fL (36.4-46.3); Red Blood Count 3.84 Miln/mm3 (4.00-5.20); White Blood Count 6.5 Thou/mm3 (3.6-11.0)
[2024-10-15 16:12] LABS: Alanine Aminotransferase 22 U/L (10-49); Albumin, Serum 4.4 gm/dL (3.5-5.0); Alkaline Phosphatase 64 U/L (46-116); Anion Gap 8 (7-16); Aspartate Amino Transferase 18 U/L (0-34); BUN/Creatinine Ratio 15 Ratio (12-20); Blood Urea Nitrogen 15 mg/dL (9-23); Calcium 9.6 mg/dL (8.3-10.6); Calcium (Corrected) 9.6 mg/dL (8.5-10.1); Carbon Dioxide 31.3 mMol/L (20.0-31.0); Chloride 103 mMol/L (98-107); Globulin 2.2 gm/dL (2.3-3.5); Glucose 98 mg/dL (74-106); Osmolality,Calculated 283 (275-295); Potassium 4.1 mMol/L (3.4-5.1); Sodium 142 mMol/L (136-145); Total Protein 6.6 gm/dL (5.7-8.2); eGFR > 60 See Note
== END | disposition home or self-care (01) ==
PROVIDERS: PCP Physician Assistant; Referring Provider Internal Medicine Hematology & Oncology; Visit Provider Internal Medicine Hematology & Oncology
DX: C56.1 Malignant neoplasm of right ovary (principal)
CPT/HCPCS: 36415; 80053; 85025; 86304

== ENCOUNTER → 2024-11-15 | Outpatient (CLI) | payer MEDICAID, SELFPAY ==
[2024-11-15 16:26] LABS: Basophils % (Auto) 1 % (0-2.5); Eosinophils # (Auto) 0.1 Thou/mm3 (0.0-0.5); Eosinophils % (Auto) 1 % (0-10); Hematocrit 36.2 % (36.0-46.0); Hemoglobin 12.4 g/dL (12.0-16.0); Immature Granulocytes % (Auto) 1 % (0-0); Immature Granulocytes Auto 0.04 Thou/mm3 (0.00-0.00); Lymphocytes # (Auto) 2.4 Thou/mm3 (1.0-4.8); Lymphocytes % (Auto) 39 % (10-50); Mean Corpuscular HGB Conc 34.3 g/dl (31.0-37.0); Mean Corpuscular Hemoglobin 34.2 pg (25.0-35.0); Mean Corpuscular Volume 100 fL (80-100); Monocytes # (Auto) 0.4 Thou/mm3 (0.0-0.8); Monocytes % (Auto) 7 % (0-12); Neutrophils # (Auto) 3.2 Thou/mm3 (1.8-7.7); Neutrophils % (Auto) 51 % (37-80); Nucleated Red Blood Cell % 0 /100 WBC (0); Platelet Count 242 Thou/mm3 (140-440); RDW Standard Deviation 48.8 fL (36.4-46.3); Red Blood Count 3.63 Miln/mm3 (4.00-5.20); White Blood Count 6.2 Thou/mm3 (3.6-11.0)
[2024-11-15 16:45] LABS: Alanine Aminotransferase 43 U/L (10-49); Albumin, Serum 4.3 gm/dL (3.5-5.0); Albumin/Globulin Ratio 2.2 (1.2-2.2); Alkaline Phosphatase 60 U/L (46-116); Anion Gap 7 (7-16); Aspartate Amino Transferase 29 U/L (0-34); BUN/Creatinine Ratio 21 Ratio (12-20); Bilirubin,Total 0.9 mg/dL (0.3-1.2); Blood Urea Nitrogen 21 mg/dL (9-23); Calcium 8.8 mg/dL (8.3-10.6); Calcium (Corrected) 8.8 mg/dL (8.5-10.1); Chloride 107 mMol/L (98-107); Glucose 135 mg/dL (74-106); Osmolality,Calculated 291 (275-295); Potassium 3.9 mMol/L (3.4-5.1); Sodium 144 mMol/L (136-145); Total Protein 6.3 gm/dL (5.7-8.2); eGFR > 60 See Note
== END | disposition home or self-care (01) ==
LOC: COPL 15:31
PROVIDERS: PCP Physician Assistant; Referring Provider Internal Medicine Hematology & Oncology; Visit Provider Internal Medicine Hematology & Oncology
DX: C56.1 Malignant neoplasm of right ovary (principal)
CPT/HCPCS: 36415; 80053; 85025; 86304

== ENCOUNTER → 2024-12-27 | Outpatient (CLI) | payer MEDICAID, SELFPAY ==
[2024-12-27 17:31] LABS: Basophils % (Auto) 0 % (0-2.5); Eosinophils # (Auto) 0.1 Thou/mm3 (0.0-0.5); Eosinophils % (Auto) 1 % (0-10); Hematocrit 35.6 % (36.0-46.0); Hemoglobin 12.1 g/dL (12.0-16.0); Immature Granulocytes % (Auto) 1 % (0-0); Immature Granulocytes Auto 0.04 Thou/mm3 (0.00-0.00); Lymphocytes # (Auto) 2.5 Thou/mm3 (1.0-4.8); Lymphocytes % (Auto) 38 % (10-50); Mean Corpuscular Hemoglobin 33.6 pg (25.0-35.0); Mean Corpuscular Volume 99 fL (80-100); Monocytes # (Auto) 0.5 Thou/mm3 (0.0-0.8); Monocytes % (Auto) 8 % (0-12); Neutrophils # (Auto) 3.5 Thou/mm3 (1.8-7.7); Neutrophils % (Auto) 52 % (37-80); Nucleated Red Blood Cell % 0 /100 WBC (0); Platelet Count 245 Thou/mm3 (140-440); RDW Standard Deviation 50.3 fL (36.4-46.3); White Blood Count 6.7 Thou/mm3 (3.6-11.0)
[2024-12-27 17:44] LABS: Alanine Aminotransferase 32 U/L (10-49); Albumin, Serum 4.3 gm/dL (3.5-5.0); Albumin/Globulin Ratio 2.3 (1.2-2.2); Alkaline Phosphatase 57 U/L (46-116); Anion Gap 7 (7-16); Aspartate Amino Transferase 22 U/L (0-34); BUN/Creatinine Ratio 13 Ratio (12-20); Bilirubin,Total 0.7 mg/dL (0.3-1.2); Blood Urea Nitrogen 13 mg/dL (9-23); Calcium 9.1 mg/dL (8.3-10.6); Calcium (Corrected) 9.1 mg/dL (8.5-10.1); Carbon Dioxide 30.4 mMol/L (20.0-31.0); Chloride 106 mMol/L (98-107); Globulin 1.9 gm/dL (2.3-3.5); Glucose 111 mg/dL (74-106); Osmolality,Calculated 286 (275-295); Sodium 143 mMol/L (136-145); Total Protein 6.2 gm/dL (5.7-8.2); eGFR > 60 See Note
== END | disposition home or self-care (01) ==
LOC: COPL 16:28
PROVIDERS: PCP Physician Assistant; Referring Provider Internal Medicine Hematology & Oncology; Visit Provider Internal Medicine Hematology & Oncology
DX: C56.1 Malignant neoplasm of right ovary (principal)
CPT/HCPCS: 36415; 80053; 85025; 86304

== ENCOUNTER → 2025-01-23 | Outpatient (CLI) | payer MEDICAID, SELFPAY ==
[2025-01-23 16:28] LABS: Basophils # (Auto) 0.1 Thou/mm3 (0.0-0.2); Basophils % (Auto) 1 % (0-2.5); Eosinophils # (Auto) 0.1 Thou/mm3 (0.0-0.5); Eosinophils % (Auto) 1 % (0-10); Hematocrit 36.9 % (36.0-46.0); Hemoglobin 12.5 g/dL (12.0-16.0); Immature Granulocytes Auto 0.07 Thou/mm3 (0.00-0.00); Lymphocytes # (Auto) 2.9 Thou/mm3 (1.0-4.8); Lymphocytes % (Auto) 39 % (10-50); Mean Corpuscular HGB Conc 33.9 g/dl (31.0-37.0); Mean Corpuscular Hemoglobin 34.8 pg (25.0-35.0); Mean Corpuscular Volume 103 fL (80-100); Monocytes # (Auto) 0.6 Thou/mm3 (0.0-0.8); Monocytes % (Auto) 8 % (0-12); Neutrophils # (Auto) 3.8 Thou/mm3 (1.8-7.7); Neutrophils % (Auto) 50 % (37-80); Nucleated Red Blood Cell # 0.03 Thou/mm3 (0.00-0.00); Nucleated Red Blood Cell % 0 /100 WBC (0); Platelet Count 249 Thou/mm3 (140-440); RDW Standard Deviation 52.9 fL (36.4-46.3); Red Blood Count 3.59 Miln/mm3 (4.00-5.20); White Blood Count 7.6 Thou/mm3 (3.6-11.0)
[2025-01-23 16:44] LABS: Alanine Aminotransferase 37 U/L (10-49); Albumin, Serum 4.3 gm/dL (3.5-5.0); Albumin/Globulin Ratio 2.0 (1.2-2.2); Alkaline Phosphatase 58 U/L (46-116); Anion Gap 10 (7-16); Aspartate Amino Transferase 23 U/L (0-34); BUN/Creatinine Ratio 13 Ratio (12-20); Bilirubin,Total 0.8 mg/dL (0.3-1.2); Blood Urea Nitrogen 16 mg/dL (9-23); Calcium 9.0 mg/dL (8.3-10.6); Calcium (Corrected) 9.0 mg/dL (8.5-10.1); Carbon Dioxide 28.4 mMol/L (20.0-31.0); Chloride 105 mMol/L (98-107); Creatinine (Component) 1.2 mg/dL (0.6-1.3); Globulin 2.2 gm/dL (2.3-3.5); Glucose 114 mg/dL (74-106); Osmolality,Calculated 287 (275-295); Potassium 3.8 mMol/L (3.4-5.1); Sodium 143 mMol/L (136-145); Total Protein 6.5 gm/dL (5.7-8.2); eGFR 54 See Note
[2025-01-23 17:01] LABS: CA 125 4.0 U/mL (<30.2)
== END | disposition home or self-care (01) ==
LOC: COPL 15:46
PROVIDERS: PCP Physician Assistant; Referring Provider Internal Medicine Hematology & Oncology; Visit Provider Internal Medicine Hematology & Oncology
DX: C56.1 Malignant neoplasm of right ovary (principal)
CPT/HCPCS: 36415; 80053; 85025; 86304

== ENCOUNTER 2025-02-14 18:24 | Emergency (ER) | payer MEDICAID, SELFPAY ==
[2025-02-14 19:06] VITALS: BP 126/63; PULSE 78; RESP 18; TEMP 36.8; O2SAT 95; BMI 27.1
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
== END 2025-02-14 20:46 | disposition home or self-care (01) ==
PROVIDERS: Emergency Provider Emergency Medicine; PCP Physician Assistant
DX: S00.01XA Abrasion of scalp, initial encounter (principal); S00.03XA Contusion of scalp, initial encounter; W20.8XXA Other cause of strike by thrown, projected or falling object, initial encounter
CPT/HCPCS: 70450; 99283

== ENCOUNTER → 2025-03-03 | Outpatient (CLI) | payer MEDICAID, SELFPAY ==
[2025-03-03 12:10] LABS: Basophils # (Auto) 0.1 Thou/mm3 (0.0-0.2); Basophils % (Auto) 1 % (0-2.5); Eosinophils # (Auto) 0.1 Thou/mm3 (0.0-0.5); Eosinophils % (Auto) 1 % (0-10); Hematocrit 37.4 % (36.0-46.0); Hemoglobin 13.0 g/dL (12.0-16.0); Immature Granulocytes Auto 0.05 Thou/mm3 (0.00-0.00); Lymphocytes # (Auto) 2.3 Thou/mm3 (1.0-4.8); Lymphocytes % (Auto) 33 % (10-50); Mean Corpuscular HGB Conc 34.8 g/dl (31.0-37.0); Mean Corpuscular Hemoglobin 34.9 pg (25.0-35.0); Mean Corpuscular Volume 100 fL (80-100); Monocytes # (Auto) 0.5 Thou/mm3 (0.0-0.8); Monocytes % (Auto) 7 % (0-12); Neutrophils # (Auto) 4.0 Thou/mm3 (1.8-7.7); Neutrophils % (Auto) 58 % (37-80); Nucleated Red Blood Cell # 0.00 Thou/mm3 (0.00-0.00); Nucleated Red Blood Cell % 0 /100 WBC (0); Platelet Count 275 Thou/mm3 (140-440); RDW Standard Deviation 49.8 fL (36.4-46.3); Red Blood Count 3.73 Miln/mm3 (4.00-5.20); White Blood Count 6.9 Thou/mm3 (3.6-11.0)
[2025-03-03 12:16] LABS: Alanine Aminotransferase 34 U/L (10-49); Albumin, Serum 4.3 gm/dL (3.5-5.0); Albumin/Globulin Ratio 1.6 (1.2-2.2); Alkaline Phosphatase 60 U/L (46-116); Anion Gap 10 (7-16); Aspartate Amino Transferase 26 U/L (0-34); BUN/Creatinine Ratio 14 Ratio (12-20); Bilirubin,Total 0.9 mg/dL (0.3-1.2); Blood Urea Nitrogen 14 mg/dL (9-23); Calcium 9.8 mg/dL (8.3-10.6); Calcium (Corrected) 9.8 mg/dL (8.5-10.1); Carbon Dioxide 27.2 mMol/L (20.0-31.0); Chloride 105 mMol/L (98-107); Creatinine (Component) 1.0 mg/dL (0.6-1.3); Globulin 2.7 gm/dL (2.3-3.5); Glucose 101 mg/dL (74-106); Osmolality,Calculated 283 (275-295); Potassium 4.4 mMol/L (3.4-5.1); Sodium 142 mMol/L (136-145); Total Protein 7.0 gm/dL (5.7-8.2); eGFR > 60 See Note
[2025-03-03 12:36] LABS: CA 125 5.0 U/mL (<30.2)
== END | disposition home or self-care (01) ==
LOC: COPL 11:12
PROVIDERS: PCP Physician Assistant; Referring Provider Internal Medicine Hematology & Oncology; Visit Provider Internal Medicine Hematology & Oncology
DX: C56.1 Malignant neoplasm of right ovary (principal)
CPT/HCPCS: 36415; 80053; 85025; 86304

== ENCOUNTER → 2025-04-03 | Outpatient (CLI) | payer MEDICAID, SELFPAY ==
[2025-04-03 12:30] LABS: Basophils # (Auto) 0.1 Thou/mm3 (0.0-0.2); Basophils % (Auto) 1 % (0-2.5); Eosinophils # (Auto) 0.1 Thou/mm3 (0.0-0.5); Eosinophils % (Auto) 2 % (0-10); Hematocrit 37.3 % (36.0-46.0); Hemoglobin 12.6 g/dL (12.0-16.0); Immature Granulocytes Auto 0.03 Thou/mm3 (0.00-0.00); Lymphocytes # (Auto) 2.5 Thou/mm3 (1.0-4.8); Lymphocytes % (Auto) 36 % (10-50); Mean Corpuscular HGB Conc 33.8 g/dl (31.0-37.0); Mean Corpuscular Hemoglobin 34.3 pg (25.0-35.0); Mean Corpuscular Volume 102 fL (80-100); Monocytes # (Auto) 0.5 Thou/mm3 (0.0-0.8); Monocytes % (Auto) 7 % (0-12); Neutrophils # (Auto) 3.7 Thou/mm3 (1.8-7.7); Neutrophils % (Auto) 54 % (37-80); Nucleated Red Blood Cell # 0.00 Thou/mm3 (0.00-0.00); Nucleated Red Blood Cell % 0 /100 WBC (0); Platelet Count 248 Thou/mm3 (140-440); RDW Standard Deviation 49.7 fL (36.4-46.3); Red Blood Count 3.67 Miln/mm3 (4.00-5.20); White Blood Count 6.8 Thou/mm3 (3.6-11.0)
[2025-04-03 12:42] LABS: Alanine Aminotransferase 44 U/L (10-49); Albumin, Serum 4.4 gm/dL (3.5-5.0); Albumin/Globulin Ratio 2.2 (1.2-2.2); Alkaline Phosphatase 59 U/L (46-116); Anion Gap 11 (7-16); Aspartate Amino Transferase 27 U/L (0-34); BUN/Creatinine Ratio 12 Ratio (12-20); Bilirubin,Total 0.7 mg/dL (0.3-1.2); Blood Urea Nitrogen 11 mg/dL (9-23); Calcium 9.2 mg/dL (8.3-10.6); Calcium (Corrected) 9.2 mg/dL (8.5-10.1); Carbon Dioxide 28.3 mMol/L (20.0-31.0); Chloride 106 mMol/L (98-107); Creatinine (Component) 0.9 mg/dL (0.6-1.3); Globulin 2.0 gm/dL (2.3-3.5); Glucose 126 mg/dL (74-106); Osmolality,Calculated 290 (275-295); Potassium 4.2 mMol/L (3.4-5.1); Sodium 145 mMol/L (136-145); Total Protein 6.4 gm/dL (5.7-8.2); eGFR > 60 See Note
[2025-04-03 13:43] LABS: CA 125 5.0 U/mL (<30.2)
== END | disposition home or self-care (01) ==
LOC: COPL 11:40
PROVIDERS: PCP Physician Assistant; Referring Provider Internal Medicine Hematology & Oncology; Visit Provider Internal Medicine Hematology & Oncology
DX: C56.1 Malignant neoplasm of right ovary (principal)
CPT/HCPCS: 36415; 80053; 85025; 86304

== ENCOUNTER 2025-05-13 14:23 | Emergency (ER) | payer MEDICAID, SELFPAY ==
[2025-05-13 14:26] VITALS: PULSE 68; RESP 20; O2SAT 99
[2025-05-13 14:53] VITALS: BP 124/61; PULSE 66; RESP 18; TEMP 36.8; O2SAT 97
--- NOTE | 2025-05-13 14:57 | XR_ITS ---
Examination: Knee, right, 3 views Technique: Knee AP, lateral, oblique 3 views Date and time of exam: 05/13/2025, 3:24 p.m. Indication: Right knee pain after fall today COMPARISON: None FINDINGS: Osteopenic changes are visualized. No evidence for acute fracture or dislocation of the right knee. Osteoarthrosis with tricompartmental marginal osteophytes identified, and dominant joint space narrowing at the patellofemoral compartment. No subluxation. No appreciable joint effusion. No aggressive bone lesions. IMPRESSION: Tricompartment osteoarthrosis but no evidence for acute fracture, subluxation or joint effusion.
--- NOTE | 2025-05-13 14:57 | XR_ITS ---
X-RAY LUMBAR SPINE 3 VIEWS Study date and time: 05/13/2025, 3:28 p.m. CLINICAL INDICATION: pain after fall COMPARISON: Lumbar spine radiographs 11/29/2009. CT abdomen pelvis 07/19/2024 FINDINGS: 5 non rib-bearing lumbar-type vertebral bodies noted. No evidence for vertebral compression fractures. Redemonstration of mild grade 1 retrolisthesis of L4 over L5 and endplate marginal osteophytes at L4 and L5. No appreciable significant disc space narrowing. No aggressive bone lesions. Facet joint dislocation. Redemonstration of L5-S1 facet arthropathy, again severe on the right side. Redemonstration of very mild osteoarthrosis of the sacroiliac joints with osteitis condense regis greater on the right side, in addition to adjacent bone island in the posterior right iliac bone. The the immediate paraspinous soft tissues are radiographically unremarkable. Moderate fecal burden is present throughout the colon at time of imaging. IMPRESSION: Negative lumbar spine radiographs for acute fracture or traumatic listhesis. Redemonstration of mild grade 1 retrolisthesis of L4 over L5 as well as right greater than left L5-S1 facet arthropathy.
--- NOTE | 2025-05-13 14:58 | EDNOTE_ITS ---
<Statement entered by Samanta Milner MD - 05/14/25 09:34> As co-signing physician, I was present and available for consult prn. I concur with the plan and care as documented by the midlevel provider. ED General RME/HPI General Chief complaint: Extremity Injury, Lower Stated complaint: RIGHT KNEE PAIN SP FALL Time Seen by Provider: 05/13/25 14:57 Arrival date/time: 05/13/25 14:23 CC: Low back pain right knee pain HPI slip and fall in a fast food restaurant, EMS reports stable vital signs. 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 Patient is awake alert [place] denies LOC or ALOC. Does not take any blood thinners. No complaints of arm pain chest pain upper back pain headache nausea vomiting diarrhea Related Data Home Medications ?Medication ?Instructions ?Recorded ?Confirmed omeprazole 20 mg capsule,delayed 20 mg PO QDAY ##0 04/2509/05/24 release cephalexin 500 mg capsule 500 mg PO Q8H 09/04/2409/05 olaparib 100 mg tablet (Lynparza) 200 mg PO BID 09/05/24 oxycodone 5 mg tablet 5 mg PO Q8H PRN pain 5 09/05/24 Previous Rx's ?Medication ?Instructions ?Recorded docusate sodium 100 mg capsule 100 mg PO BID #60 caps 09/05/24 (Colace) hydrocodone 10 mg-acetaminophen 1 tab PO Q6H PRN pain #20 tabs 09/05/24 325 mg tablet ibuprofen 600 mg tablet 600 mg PO Q8H PRN pain (scal e 09/05/24 score 4-6) #15 tabs Allergies Allergy/AdvReac Type Severity Reaction Status Date / Time piroxicam Allergy Severe SWELLING, Verified 02/14/25 18:29 RASH loratadine Allergy Mild Rash Verified 02/14/25 18:29 Penicillins Allergy Mild Rash Verified 02/14/25 18:29 Review of Systems Review of Systems Narrative Review of Systems: GEN: No fever, no chills, no weight loss EYES: No discharge, no visual changes, no pain HEENT: No ear pain, no congestion, no sore throat PULM: No shortness of breath, no cough, no congestion CV: No chest pain, no dyspnea on exertion, no palpitations GI: No nausea, no vomiting, no diarrhea, no pain, no constipation : No frequency, no urgency, no dysuria MUSC/SKEL: + joint pain, + back pain SKIN: No rash PSYCH: No hallucinations, no depression HEME/LYMPH: No easy bleeding or bruising tendencies NEURO: No weakness, no headache ED Exam Narrative Physical exam: [General: In mild discomfort not in any acute distress Head normocephalic HEENT: Within acceptable limits Neck is supple nontender Chest equal chest rise nontender to palpation Respiratory: Clear to auscultation no wheezes crackles or rubs CV: Rate rhythm is regular no murmurs rubs or clicks Abdomen is distended secondary to body habitus soft nontender no masses positive bowel sounds all 4 quadrants Back: Mild lumbar tenderness with palpation of patient. No spinous process tenderness no gross abnormalities. No thoracic or cervical spine tenderness with palpation Skin: Mild abrasion to the proximal tibial prominence. Tenderness to palpation through the entire portion of the distal portion of the knee. No proximal pain. No significant edema or erythema. Otherwise skin is intact no petechiae rash induration ulceration or crepitus Extremities: Moving all extremity against resistance cap refill less than 2 seconds neurosensory intact Neuro: Awake alert oriented x3 Glascow coma 15 no focal deficits] Course Quality Measures none Orders Category Date Time Status XR knee RT 3V Stat Exams 05/13/25 14:57 Completed XR lumbar spine 2-3V Stat Exams 05/13/25 14:57 Completed oxyCODONE/APAP 5/325 [Percocet 5/325] Med 05/13/25 18:43 Discontinued 1 tab PO X1 ONE Vital Signs Vital signs: Vital Signs Temperature 98.2 F 05/13/25 14:53 Pulse Rate 66 05/13/25 14:53 Respiratory Rate 18 05/13/25 14:53 Blood Pressure 124/61 05/13/25 14:53 Pulse Oximetry (%) 97 05/13/25 14:53 Oxygen Delivery Method Room Air 05/13/25 14:53 Discharge Plan Plan Patient Disposition: HOME (Self Care) Patient condition on transfer: Stable Prescriptions/Referrals Prescriptions/Med Rec: No Action omeprazole 20 MG capsule,delayed release(DR/EC) 20 mg PO QDAY Qty: 0 Lynparza 100 mg tablet 200 mg PO BID cephalexin 500 mg capsule 500 mg PO Q8H oxycodone 5 mg tablet 5 mg PO Q8H PRN (Reason: pain) docusate sodium [Colace] 100 mg capsule 100 mg PO BID Qty: 60 0RF ibuprofen 600 mg tablet 600 mg PO Q8H PRN (Reason: pain (scale score 4-6)) Qty: 15 0RF hydrocodone-acetaminophen 10-325 mg tablet 1 tab PO Q6H MDD 4 PRN (Reason: pain) Qty: 20 0RF Referrals: Cosme Maddox PA-C [Primary Care Provider] - In 1 week Chung Valadez MD [Physician, Orthopedics] - In 1 week Problem List Clinical Impression: Contusion of knee, Back contusion Patient/Caregiver Discharge Instructions Other Activity Instructions:: Continue to take your home pain medications. Apply heat or ice whichever works best for your back. Follow-up with your primary care doctor. If there is a worsening of symptoms return to the emergency room for reevaluation. Education Materials: Self-Care for Low Back Pain, Bruises (Contusions) Print Language: Belarusian Stand Alone Forms: [employer] Award Info., Work/School Release, Patient Portal Info Letter MALOU/NADIA Supervising Physician MALOU/NADIA Supervising Physician: Jerman Dill ENP [facility] Clinical Information Provided by: patient and EMS Medical [facility] Meds/Rx considered, not ordered None Labs/Rad/Tests considered, not ordered None Chronic Illness/Social Conditions Explain: Ovarian cancer EKG EKG not done Imaging Imaging interpretation: interpreted by me Imaging Interpretation(s): Knee x-ray is negative for any acute fracture malalignment or dislocation Lumbar spine is negative for any acute fracture malalignment or dislocation is interpreted by radiology. Medication Administration(s) none Medication Administration History Discontinued Medications Oxycodone/Acetaminophen (Oxycodone/Apap 5/325 Tablet) 1 tab PO X1 ONE Stop: 05/13/25 18:44 Last Admin: 05/13/25 19:48 Dose: 1 tab Documented By: LUISA Diagnosis Differential Diagnosis ED Complaint MDM: Knee fracture lumbar fracture
[2025-05-13 19:36] VITALS: BP 148/79; PULSE 62; RESP 18; TEMP 36.6; O2SAT 100
== END 2025-05-13 19:51 | disposition home or self-care (01) ==
PROVIDERS: Emergency Provider Emergency Medicine; PCP Physician Assistant
DX: S20.229A Contusion of unspecified back wall of thorax, initial encounter (principal); S80.01XA Contusion of right knee, initial encounter; W01.0XXA Fall on same level from slipping, tripping and stumbling without subsequent striking against object, initial encounter
CPT/HCPCS: 72100; 73562; 99283; A9270

== ENCOUNTER 2025-05-16 17:00 | Emergency (ER) | payer MEDICAID, SELFPAY ==
[2025-05-16 17:03] VITALS: BMI 26.6
--- NOTE | 2025-05-16 17:06 | EKG_ITS ---
[facility] Test Date: 2025-05-16 Pat Name: HALEIGH PICHARDO Department: Room: - Gender: Female Lokie Driver: : 1970 Requested By: Randal Hebert Order Number: [id number] Reading MD: Randal Hebert Measurements Intervals [place] Rate: 67 P: 62 OK: 158 QRS: 59 QRSD: 81 T: 67 QT: 363 QTc: 384 Interpretive Statements SINUS RHYTHM Compared to ECG 09/04/2024 12:53:53 Sinus bradycardia no longer present /store/S0/[id number].pdf
[2025-05-16 17:09] VITALS: BP 132/68; PULSE 69; RESP 16; TEMP 36.8; O2SAT 98
--- NOTE | 2025-05-16 17:13 | PC.NURSE ---
EKG DONE AND SHOWN TO DR. BYNUM. OKAYED FOR PT TO WAIT TO BE SEEN BY RME PROVIDER
--- NOTE | 2025-05-16 17:29 | XR_ITS ---
CLINICAL INDICATION: chest pain Exam date and time: 05/16/2025 at 5:49 p.m. TECHNIQUE: XR chest 1V portable COMPARISON: 02/28/2024 FINDINGS: The cardiomediastinal silhouette is within normal limits. No airspace opacities suggestive of pneumonia. No mass detected. No pleural effusion or pneumothorax. No acute osseous abnormality detected. Redemonstration of slight convex right curvature in the upper half of the thoracic spine. IMPRESSION: No radiographic evidence for acute cardiopulmonary abnormality. No significant interval change since the comparison study. - This report was generated utilizing speech recognition software. -
--- NOTE | 2025-05-16 17:30 | PD.EDRME ---
Rapid Medical Screening Exam E Arrival date/time: 05/16/25 17:00 54-year-old female with no known medical history presents to the emergency room with a chief complaint of left-sided sternal chest pain that radiates down her left arm x 3 hours I have greeted and performed a focused initial assessment of this patient. A comprehensive ED assessment and evaluation of the patient, analysis of all test results, and completion of the medical decision making process will be conducted by additional ED providers. Chief Complaint: Chest Pain Time Seen by Provider: 05/16/25 17:15 Vital signs: Vital Signs Temperature 98.2 F 05/16/25 17:09 Pulse Rate 69 05/16/25 17:09 Respiratory Rate 16 05/16/25 17:09 Blood Pressure 132/68 H 05/16/25 17:09 Pulse Oximetry (%) 98 05/16/25 17:09 Oxygen Delivery Method Room Air 05/16/25 17:09 Vital signs reviewed by provider: Yes Exam: Clear bilateral lung sounds. Patient is a GCS of 15 Patient is a strong and regular rhythm S1 and S2 noted Clinical Impression: STEMI/NSTEMI/chest pain/gastroenteritis
[2025-05-16 18:17] LABS: Basophils # (Auto) 0.1 Thou/mm3 (0.0-0.2); Basophils % (Auto) 1 % (0-2.5); Eosinophils # (Auto) 0.3 Thou/mm3 (0.0-0.5); Eosinophils % (Auto) 5 % (0-10); Hematocrit 37.7 % (36.0-46.0); Hemoglobin 12.7 g/dL (12.0-16.0); Immature Granulocytes Auto 0.05 Thou/mm3 (0.00-0.00); Lymphocytes # (Auto) 2.5 Thou/mm3 (1.0-4.8); Lymphocytes % (Auto) 37 % (10-50); Mean Corpuscular HGB Conc 33.7 g/dl (31.0-37.0); Mean Corpuscular Hemoglobin 33.9 pg (25.0-35.0); Mean Corpuscular Volume 101 fL (80-100); Monocytes # (Auto) 0.5 Thou/mm3 (0.0-0.8); Monocytes % (Auto) 8 % (0-12); Neutrophils # (Auto) 3.2 Thou/mm3 (1.8-7.7); Neutrophils % (Auto) 49 % (37-80); Nucleated Red Blood Cell # 0.00 Thou/mm3 (0.00-0.00); Nucleated Red Blood Cell % 0 /100 WBC (0); Platelet Count 237 Thou/mm3 (140-440); RDW Standard Deviation 49.2 fL (36.4-46.3); Red Blood Count 3.75 Miln/mm3 (4.00-5.20); White Blood Count 6.6 Thou/mm3 (3.6-11.0)
[2025-05-16 18:22] LABS: B-Type Natriuretic Peptide < 20 pg/mL (0-100)
[2025-05-16 18:24] LABS: Collection Type, Urine Clean Catch
[2025-05-16 18:27] LABS: Alanine Aminotransferase 42 U/L (10-49); Albumin, Serum 4.8 gm/dL (3.5-5.0); Albumin/Globulin Ratio 2.7 (1.2-2.2); Alkaline Phosphatase 65 U/L (46-116); Anion Gap 7 (7-16); Aspartate Amino Transferase 30 U/L (0-34); BUN/Creatinine Ratio 12 Ratio (12-20); Bilirubin,Total 0.6 mg/dL (0.3-1.2); Blood Urea Nitrogen 12 mg/dL (9-23); Calcium 9.4 mg/dL (8.3-10.6); Calcium (Corrected) 9.4 mg/dL (8.5-10.1); Carbon Dioxide 28.6 mMol/L (20.0-31.0); Chloride 107 mMol/L (98-107); Creatinine (Component) 1.0 mg/dL (0.6-1.3); Estimated Creatinine Clearance 68.8 mL/min (>60); Free T4 (Free Thyroxine) 1.11 ng/dL (0.89-1.76); Globulin 1.8 gm/dL (2.3-3.5); Glucose 109 mg/dL (74-106); Magnesium 2.1 mg/dL (1.6-2.6); Osmolality,Calculated 285 (275-295); Potassium 4.0 mMol/L (3.4-5.1); Sodium 143 mMol/L (136-145); Thyroid Stimulating Hormone 0.88 uIU/mL (0.55-4.78); Total Protein 6.6 gm/dL (5.7-8.2); Troponin I < 0.002 ng/mL (0.0-0.045); eGFR > 60 See Note
[2025-05-16 18:36] LABS: Amphetamine/Methamp Scrn,U Negative (Negative); Barbiturate Screen,Urine Negative (Negative); Benzodiazepines Screen,Urine Negative (Negative); Benzoylecgonine Screen, Ur Negative (Negative); Bilirubin,Urine Negative (Negative); Blood,Urine Negative (Negative); Clarity,Urine Clear (Clear/Hazy); Color,Urine Lt-Yellow (Lt Yel-Yel); Culture Indicated,Urine Not Indicated; Fentanyl Screen,Urine Negative (Negative); Glucose, Urine Negative (Negative); Ketones,Urine Negative (Negative); Leukocyte Esterase,Urine Negative (Negative); Nitrite,Urine Negative (Negative); Opiate Screen,Urine Negative (Negative); PH,Urine 6.5 (5.0-7.0); Protein,Urine Negative (Neg - Trace); RBC,Urine 1 /hpf (0-3); Specific Gravity,Urine 1.021 (1.001-1.035); Squamous Epithelial Cell,Urine < 1 /hpf (0-5); THC Screen,Urine Negative (Negative); Urobilinogen,Urine Negative mg/dL (0.0-1.0); WBC,Urine 2 /hpf (0-5)
[2025-05-16 19:11] LABS: INR 0.9 (0.9-1.3); Partial Thromboplastin Time 26.0 Seconds (22.0-36.0); Prothrombin Time 9.9 Seconds (9.0-12.2)
--- NOTE | 2025-05-16 20:35 | PD.EDCHEST ---
ED Chest Pain RME/HPI General Chief Complaint: Chest Pain Stated Complaint: CXP RADIATES TO SHOULDER/NECK/JAW Time Seen by Provider: 05/16/25 17:15 Arrival date/time: 05/16/25 17:00 54-year-old female patient came in for evaluation regarding left-sided chest pain. Onset of symptoms earlier today is left-sided chest pain, described as dull ache, radiating to her jaw and left arm. Patient was in the workplace when it happened. Denies any cough denies any fever denies any other complaints. RME / HPI RME / HPI narrative: 05/16/25 17:00 54-year-old female with no known medical history presents to the emergency room with a chief complaint of left-sided sternal chest pain that radiates down her left arm x 3 hours I have greeted and performed a focused initial assessment of this patient. A comprehensive ED assessment and evaluation of the patient, analysis of all test results, and completion of the medical decision making process will be conducted by additional ED providers. Exam: Clear bilateral lung sounds. Patient is a GCS of 15 Patient is a strong and regular rhythm S1 and S2 noted Impression: STEMI/NSTEMI/chest pain/gastroenteritis Related Data Home Medications ?Medication ?Instructions ?Recorded ?Confirmed omeprazole 20 mg capsule,delayed 20 mg PO QDAY ##0 01/16/17 09/05/24 release cephalexin 500 mg capsule 500 mg PO Q8H 09/04/24 09/05/24 olaparib 100 mg tablet (Lynparza) 200 mg PO BID 09/04/24 09/05/24 oxycodone 5 mg tablet 5 mg PO Q8H PRN pain 09/04/24 09/05/24 Previous Rx's ?Medication ?Instructions ?Recorded docusate sodium 100 mg capsule 100 mg PO BID #60 caps 09/05/24 (Colace) hydrocodone 10 mg-acetaminophen 1 tab PO Q6H PRN pain #20 tabs 09/05/24 325 mg tablet ibuprofen 600 mg tablet 600 mg PO Q8H PRN pain (scale 09/05/24 score 4-6) #15 tabs Allergies Allergy/AdvReac Type Severity Reaction Status Date / Time piroxicam Allergy Severe SWELLING, Verified 05/16/25 17:05 RASH loratadine Allergy Mild Rash Verified 05/16/25 17:05 Penicillins Allergy Mild Rash Verified 05/16/25 17:05 Review of Systems Review of Systems Narrative Review of Systems: Review of system reviewed and within normal limits except mentioned in HPI ED Exam Narrative Physical exam: VITAL SIGNS: Reviewed. GENERAL APPEARANCE: Alert and interactive, follows commands, no acute distress, HEAD AND FACE: Non-traumatic. ENT: PERRL, pink conjunctivitis, eyelid no trauma, Mucous membrane moist. NECK: Supple, nontender, no nuchal rigidity. CHEST: Left-sided chest tenderness, no crepitus, no paradoxical movement, no retractions. LUNGS: Clear, well ventilated, symmetric, no rales, no wheezing, no ronchi, no stridor, good breath sounds bilaterally. HEART: Regular rate, regular rhythm, no murmur, no gallops. ABDOMEN: Soft, positive bowel sounds, nondistended, no guarding, nontender, no rebound, no masses, RECTAL: Deferred. GENITAL: Deferred. NEUROLOGICAL: Gross motor function intact sensory function intact, Appropriate for age. MUSCULOSKELETAL: low back nontender, full range of motion. EXTREMITIES: Nontender, full range of motion. SKIN: Color pink, dry, no rash, no lacerations, no abrasions, no contusions. LYMPHATICS: Deferred. Course Quality Measures none Orders Category Date Time Status EKG (ED ONLY) *Do not use* NOW Care 05/16/25 17:06 Completed EKG (ED Only) Stat Exams 05/16/25 17:06 Draft XR chest 1V portable Stat Exams 05/16/25 17:29 Completed B-Type Natriuretic Peptide Stat Lab 05/16/25 17:44 Completed CBC Stat Lab 05/16/25 17:44 Completed Comprehensive Metabolic Panel Stat Lab 05/16/25 17:44 Completed Drug Screen,Urine Stat Lab 05/16/25 18:00 Completed Free T4 (Free Thyroxine) Stat Lab 05/16/25 17:44 Completed Magnesium Stat Lab 05/16/25 17:44 Completed Partial Thromboplastin Time Stat Lab 05/16/25 17:44 Completed Prothrombin Time with INR Stat Lab 05/16/25 17:44 Completed TSH [Thyroid Stimulating Hormone] Stat Lab 05/16/25 17:44 Completed Troponin I Stat Lab 05/16/25 17:44 Completed Urinalysis, C/S if Indicated Stat Lab 05/16/25 18:00 Completed Vital Signs Vital signs: Vital Signs Temperature 98.2 F 05/16/25 17:09 Pulse Rate 69 05/16/25 17:09 Respiratory Rate 16 05/16/25 17:09 Blood Pressure 132/68 H 05/16/25 17:09 Pulse Oximetry (%) 98 05/16/25 17:09 Oxygen Delivery Method Room Air 05/16/25 17:09 Chest Pain [facility] Narrative [facility] Narrative:: 54-year-old female patient came in for evaluation regarding left-sided chest pain. Onset of symptoms earlier today is left-sided chest pain, described as dull ache, radiating to her jaw and left arm. Patient was in the workplace when it happened. Denies any cough denies any fever denies any other complaints. Patient's workup today all came back unremarkable including cardiac workup,. I personally reviewed and interpreted the x-ray of this patient. There is no acute abnormalities found, no infiltrates no pneumothorax no hemothorax normal chest x-ray. Review of other structures was without significant abnormal findings also. I additionally reviewed the radiologist report and agree with the interpretation. EKG as interpreted by me shows normal sinus rhythm, ventricular to 67 bpm, no ST segment elevation or depression noted. Repeat troponin is not needed at this time, patient chest pain started more than 3 hours ago prior to ER visit. Prior to discharge patient is not having any pain stable for discharge home. Advised her to return to emergency room for recurrence of symptoms. I also asked her to follow-up with PCP next week. Patient data External records reviewed:: None Clinical information provided by:: patient Social determinants that could affect healthcare access:: none Patient has the following chronic illnesses:: None How is presenting disease/condition affected by chronic disease/condition?: exacerbated by Evaluation data The following diagnostics were reviewed and interpreted by me:: lab results, radiology exam(s) and EKG tracing(s) Lab and/or radiology exams considered but not ordered:: None Interpretation Summary: See results [facility] Medications / Prescriptions Medications or Prescriptions considered but not ordered:: None Medication administrations:: None Consultations Consultation(s) initiated? (list below): No Diagnosis Chest Pain Differential Diagnosis: stable angina and chest pain Most likely diagnosis given after review of the tests above:: Chest pain Admission Indicated Admission indicated?: not indicated Admission Request Was there a request for admission?: No Disposition Plan Disposition Plan: Discharge Discharge Attestation Discharge Attestation: The patient was given an opportunity to ask questions and understood the discharge instructions. Discharge instructions specifically effects, indications for sooner follow up or return to the emergency department, and the expected course of current diagnosis. Patient condition: Stable Discharge Plan Plan Patient Disposition: HOME (Self Care) Discharge Disposition comment: Stable Prescriptions/Referrals Prescriptions/Med Rec: No Action omeprazole 20 MG capsule,delayed release(DR/EC) 20 mg PO QDAY Qty: 0 Lynparza 100 mg tablet 200 mg PO BID cephalexin 500 mg capsule 500 mg PO Q8H oxycodone 5 mg tablet 5 mg PO Q8H PRN (Reason: pain) docusate sodium [Colace] 100 mg capsule 100 mg PO BID Qty: 60 0RF ibuprofen 600 mg tablet 600 mg PO Q8H PRN (Reason: pain (scale score 4-6)) Qty: 15 0RF hydrocodone-acetaminophen 10-325 mg tablet 1 tab PO Q6H MDD 4 PRN (Reason: pain) Qty: 20 0RF Referrals: Cosme Maddox PA-C [Primary Care Provider] - In 1 week Problem List Clinical Impression: Chest pain Patient/Caregiver Discharge Instructions Discharge Activity: activity as tolerated Education Materials: Understanding the Pain Response Additional Instructions: Thank you for the opportunity for serving you today. You are stable for discharged . You are advised to: Follow-up with your PCP in 1 to 2 days Return to ED for worsening of symptoms Increase oral fluids Take take [id number] Tylenol Motrin as needed for pain Print Language: Mohawk Stand Alone Forms: [place] Award Info., Patient Portal Info Letter
== END 2025-05-16 20:48 | disposition home or self-care (01) ==
PROVIDERS: Nurse Practitioner Family; Emergency Provider Nurse Practitioner Family; PCP Physician Assistant
DX: R07.9 Chest pain, unspecified (principal)
CPT/HCPCS: 36415; 71045; 80053; 80307; 81001; 83735; 83880; 84439; 84443; 84484; 85025; 85610; 85730; 93005; 99283

== ENCOUNTER → 2025-06-16 | Outpatient (CLI) | payer MEDICAID, SELFPAY ==
[2025-06-16 18:22] LABS: Basophils # (Auto) 0.1 Thou/mm3 (0.0-0.2); Basophils % (Auto) 1 % (0-2.5); Eosinophils # (Auto) 0.1 Thou/mm3 (0.0-0.5); Eosinophils % (Auto) 1 % (0-10); Hematocrit 39.2 % (36.0-46.0); Hemoglobin 13.1 g/dL (12.0-16.0); Immature Granulocytes Auto 0.04 Thou/mm3 (0.00-0.00); Lymphocytes # (Auto) 3.0 Thou/mm3 (1.0-4.8); Lymphocytes % (Auto) 40 % (10-50); Mean Corpuscular HGB Conc 33.4 g/dl (31.0-37.0); Mean Corpuscular Hemoglobin 34.0 pg (25.0-35.0); Mean Corpuscular Volume 102 fL (80-100); Monocytes # (Auto) 0.6 Thou/mm3 (0.0-0.8); Monocytes % (Auto) 7 % (0-12); Neutrophils # (Auto) 3.8 Thou/mm3 (1.8-7.7); Neutrophils % (Auto) 51 % (37-80); Nucleated Red Blood Cell # 0.00 Thou/mm3 (0.00-0.00); Nucleated Red Blood Cell % 0 /100 WBC (0); Platelet Count 283 Thou/mm3 (140-440); RDW Standard Deviation 49.9 fL (36.4-46.3); Red Blood Count 3.85 Miln/mm3 (4.00-5.20); White Blood Count 7.4 Thou/mm3 (3.6-11.0)
[2025-06-16 18:42] LABS: Alanine Aminotransferase 46 U/L (10-49); Albumin, Serum 5.0 gm/dL (3.5-5.0); Albumin/Globulin Ratio 2.2 (1.2-2.2); Alkaline Phosphatase 70 U/L (46-116); Anion Gap 11 (7-16); Aspartate Amino Transferase 31 U/L (0-34); BUN/Creatinine Ratio 13 Ratio (12-20); Bilirubin,Total 0.8 mg/dL (0.3-1.2); Blood Urea Nitrogen 12 mg/dL (9-23); Calcium 9.7 mg/dL (8.3-10.6); Calcium (Corrected) 9.7 mg/dL (8.5-10.1); Carbon Dioxide 30.0 mMol/L (20.0-31.0); Chloride 104 mMol/L (98-107); Creatinine (Component) 0.9 mg/dL (0.6-1.3); Globulin 2.3 gm/dL (2.3-3.5); Glucose 116 mg/dL (74-106); Osmolality,Calculated 289 (275-295); Potassium 3.7 mMol/L (3.4-5.1); Sodium 145 mMol/L (136-145); Total Protein 7.3 gm/dL (5.7-8.2); eGFR > 60 See Note
[2025-06-16 20:39] LABS: CA 125 7.0 U/mL (<30.2)
== END | disposition home or self-care (01) ==
LOC: COPL 15:29
PROVIDERS: PCP Physician Assistant; Referring Provider Internal Medicine Hematology & Oncology; Visit Provider Internal Medicine Hematology & Oncology
DX: C56.1 Malignant neoplasm of right ovary (principal)
CPT/HCPCS: 36415; 80053; 85025; 86304